=== PATIENT | male | born 1970 | race Caucasian/White ===

== ENCOUNTER → 2020-07-07 | Day surgery (SDC) | payer MEDICARE, MEDICAID ==
[2020-06-29 14:30] LABS: BASOPHILS # (AUTO) 0.1 X10'3 (0-0.2); BASOPHILS % (AUTO) 1.1 % (0-1); EOSINOPHILS # (AUTO) 0.1 X10'3 (0-0.9); EOSINOPHILS % (AUTO) 1.3 % (0-6); LYMPHOCYTES # (AUTO) 1.4 X10'3 (1.1-4.8); LYMPHOCYTES % (AUTO) 17.7 % (21-51); MEAN CORPUSCULAR HEMOGLOBIN 28.4 PG (27.0-31.0); MEAN CORPUSCULAR HGB CONC 33.5 g/dL (33.0-36.5); MEAN CORPUSCULAR VOLUME 84.8 FL (78-98); MEAN PLATELET VOLUME 7.8 FL (7.4-10.4); MONOCYTES # (AUTO) 0.7 X10'3 (0-0.9); MONOCYTES % (AUTO) 8.6 % (2-12); NEUTROPHILS # (AUTO) 5.6 X10'3 (1.8-7.7); NEUTROPHILS % (AUTO) 71.3 % (42-75); PRE OP HEMATOCRIT 39.2 % (42.0-52.0); PRE OP HEMOGLOBIN 13.1 g/dL (14.0-17.9); PRE OP PLATELET COUNT 194 X10'3 (140-440); RED BLOOD COUNT 4.62 X10'6 (4.70-6.10); RED CELL DISTRIBUTION WIDTH 17.2 % (11.5-14.5)
[2020-06-29 14:43] LABS: PRE OP PROTIME 10.6 SECONDS (9.0-12.0)
[2020-06-29 14:46] LABS: ALBUMIN/GLOBULIN RATIO 1.1 (1.1-1.5); ALKALINE PHOSPHATASE 77 IU/L (46-116); BLOOD UREA NITROGEN 18 MG/DL (7-18); BUN/CREATININE RATIO 16.7 (5.4-32.0); CALCIUM 8.7 MG/DL (8.5-10.1); CHLORIDE 107 MMOL/L (99-107); CREATININE 1.08 MG/DL (0.60-1.10); PRE OP ALT 26 U/L (30-65); PRE OP ANION GAP 8 (8-16); PRE OP AST 21 U/L (10-37); PRE OP BILIRUB, TOTAL 0.6 MG/DL (0.0-1.0); PRE OP GLUCOSE 108 MG/DL (70-104); PRE OP POTASSIUM 4.6 MMOL/L (3.4-5.1); PRE OP SODIUM 142 MMOL/L (135-145); TOTAL CARBON DIOXIDE 27.4 MMOL/L (24-32); TOTAL PROTEIN 7.6 G/DL (6.4-8.2); eGFR 72 ML/MIN
[~2020-07-07] VITALS: Ht 188 cm; Wt 113.4 kg
[2020-07-07] VITALS (8 sets, daily range): BP systolic 109–134; BP diastolic 73–91
[~2020-07-07] MED LIST: BUPIVAcaine/PF 2.5 mg/ml (0.25%) 30ml vial ONE; DOCUMENT DATE & TIME OF BETA-BLOCKER PO ONE; FAMO-128 PO; FLEC100T3 PO; METO-384 PO; PANT-47 PO; RIVA20TA PO; bacitracin 15gm ointment TP ONE; ceFAZolin 2gm in dextrose, iso 50 ML IV ONE; famotidine 20mg tablet PO ONE; fentaNYL/PF 50MCG/1 ML 2ML syringe ONE; midazolam 2 mg/2 ml injection ONE; oxyCODONE/APAP 5-325mg tablet PO ONE; propofol inj 20 ML IV ONE; ringers solution, lacted 1,000 ML IV SCH; sevoflurane 250ml liquid IH ONE
--- NOTE | 2020-07-07 15:49 | NUR ---
Received from OR via [facility], accompanied by Anesthesiologist Haris and report given by Anesthesiolgist. Pt too sleepy to anser questions but all VS stable and sats 100%. Pt Right foot elevated and ice. IV to left forearm and IVF LR at 100cc/hr.
--- NOTE | 2020-07-07 16:00 | NUR ---
Pt woke up, responding to questions, moves extrems, no neurological deficits .
--- NOTE | 2020-07-07 17:09 | NUR ---
Pt discharged to vehicle by wheelchair after IV dc'd and all belongings returned to patient. He verbalized understanding of all DC instructions and his mother did also. Ice pack given to patient. He has pain meds at home already from MD office.
== END | disposition home or self-care (01) ==
LOC: PAS 08:52
PROVIDERS: ATTEND Podiatrist Foot & Ankle Surgery
DX: M79.89 Other specified soft tissue disorders (principal); M72.2 Plantar fascial fibromatosis; Z20.828 Contact with and (suspected) exposure to other viral communicable diseases; I48.91 Unspecified atrial fibrillation; I10 Essential (primary) hypertension; K21.9 Gastro-esophageal reflux disease without esophagitis; F41.9 Anxiety disorder, unspecified; F32.9 Major depressive disorder, single episode, unspecified; E66.9 Obesity, unspecified; Z68.32 Body mass index [BMI] 32.0-32.9, adult; Z87.19 Personal history of other diseases of the digestive system; Z98.890 Other specified postprocedural states; Z90.49 Acquired absence of other specified parts of digestive tract; Z98.84 Bariatric surgery status; Z79.899 Other long term (current) drug therapy; Z88.5 Allergy status to narcotic agent; Z88.8 Allergy status to other drugs, medicaments and biological substances; Z95.0 Presence of cardiac pacemaker; Z89.429 Acquired absence of other toe(s), unspecified side; Z72.89 Other problems related to lifestyle; Z83.3 Family history of diabetes mellitus
CPT/HCPCS: 28041; 36415; 80053; 82948; 85025; 85610; 85730; 87635; 93005; A6222; J2250; J2704; J3010; J3490; A4215; A4618; A6253; A6449; A7000; J7120